=== PATIENT | female | born 1950 | race Hispanic/Latino ===

== ENCOUNTER → 2018-02-18 | Outpatient (CLI) | payer MEDICARE | END | disposition home or self-care (01) | LOC: RAH 12:43 | PROVIDERS: ATTEND Internal Medicine | DX: Z12.31 Encounter for screening mammogram for malignant neoplasm of breast (principal) | CPT/HCPCS: 77067 ==

== ENCOUNTER 2018-07-31 18:50 | Inpatient (IN) | payer MEDICARE ==
[~2018-07-31] VITALS: Ht 157.5 cm; Wt 52.6 kg
[2018-07-31] MEDS ORDERED: ONDANSETRON HCL 4 MG/2 ML VIAL IV PRN (21:00)
[2018-07-31] MEDS ORDERED: ACETAMINOPHEN 325 MG TAB PO PRN ×2 (21:00)
[2018-07-31] MEDS: ENOXAPARIN SODIUM 30 MG/0.3 ML SQ SCH (21:00)
[2018-07-31] MEDS: FAMOTIDINE/PF 20 MG/2 ML VIAL IV SCH (21:00)
[2018-07-31 22:57] LABS: BASOPHILS % (AUTO) 0.4 % (0.0-5.0); EOSINOPHILS % (AUTO) 0.7 % (0.0-8.0); HEMATOCRIT 35.6 % (36-48); LYMPHOCYTES % (AUTO) 31.7 % (21.0-51.0); MEAN CORPUSCULAR HGB CONC 33.6 g/dL (32.0-36.0); MEAN CORPUSCULAR VOLUME 83.4 fL (79-99); MONOCYTES % (AUTO) 6.9 % (3.0-13.0); NEUTROPHILS % (AUTO) 60.3 % (40.0-77.0); PLATELET COUNT (AUTO) 221 K/uL (130-400); RED BLOOD CELL COUNT(AUTO) 4.28 MIL/uL (4.00-5.50); RED CELL DISTRIBUTION WIDTH 13.5 % (11.0-15.5)
[2018-07-31 23:00] VITALS: BP 150/76
[2018-07-31 23:15] LABS: INR 1.02 (0.85-1.15); PARTIAL THROMBOPLASTIN TIME 27.8 SEC (26.3-35.5); PROTHROMBIN TIME 10.7 SEC (9.6-11.6)
[2018-07-31 23:17] LABS: BILIRUBIN,TOTAL 0.3 mg/dL (0.2-1.0); CREATININE 0.9 mg/dL (0.5-1.5); TOTAL PROTEIN, SERUM 7.5 g/dL (6.0-8.3)
[2018-08-01 08:32] VITALS: BP 132/71
[2018-08-01] MEDS: FAMOTIDINE/PF 20 MG/2 ML VIAL IV SCH ×2 (09:37→19:54)
[2018-08-01] MEDS: ENOXAPARIN SODIUM 30 MG/0.3 ML SQ SCH ×2 (09:38→19:55)
[2018-08-01] MEDS ORDERED: DOCU-116 PO (09:42)
[2018-08-01] MEDS ORDERED: BROM2.5T3 PO (09:42)
[2018-08-01] MEDS ORDERED: LEVO75TA4 PO (09:42)
[2018-08-01 09:56] LABS: APPEARANCE,URINE Clear (CLEAR); BILIRUBIN,URINE Negative (NEGATIVE); COLOR,URINE Yellow (YELLOW); GLUCOSE, URINE (UA) Negative (NEGATIVE); KETONES,URINE Negative (NEGATIVE); LEUKOCYTE ESTERASE ,URINE Large (NEGATIVE); NITRATE,URINE Negative (NEGATIVE); OCCULT BLOOD,URINE Nonhemolyzed Trace (NEGATIVE); PROTEIN,URINE Negative (NEGATIVE)
[2018-08-01 10:02] LABS: BACTERIA,URINE Many /HPF (None Seen); RBC,URINE 0-1 /HPF (0-1); SQUAMOUS EPITHELIAL CELL,UR Few /HPF (0-2); WBC,URINE TNTC /HPF (0-1)
[2018-08-01 11:32] VITALS: BP 117/67
--- NOTE | 2018-08-01 14:03 | NUR ---
DR. NAVARRO IN AND EXPLAINED FINDINGS, COLLAR VS SURGERY, RISK ASSOCIATED WITH COMPLICATIONS AND RISKS AND BENEFITS. PT AND FAMILY ASKED QUESTIONS AND DR. NAVARRO ANSWERED THEM. PT VERBALIZED UNDERSTANDING. PT TO HAVE COLLAR IN PLACE AT ALL TIMES.
--- NOTE | 2018-08-01 17:00 | NUR ---
CM IA AND ORDER FOR REFERRAL MET W PT, PRUDENCIO CULLEN, W FRIEND AT SIDE;DAUGHTER LIVES WITH HER, NO DME, HAS BEEN FALLINF FREQUENTLY, CURRENTLY WITH NECK BRACE, ORDER FOR SNF REFERRAL, PT STATES WILL THINK ABOUT IT. CURRENTLY DC PLAN IS HOME Addendum: 08/02/18 at 2126 by VIVIENNE SCHRADER RN CM Amended: Links added.
[2018-08-01 17:23] VITALS: BP 106/72
[2018-08-01 20:48] VITALS: BP 114/68
[2018-08-02] VITALS: BP 115/73
[2018-08-02 04:00] VITALS: BP 128/69
[2018-08-02 04:46] LABS: BASOPHILS % (AUTO) 0.7 % (0.0-5.0); EOSINOPHILS % (AUTO) 0.7 % (0.0-8.0); HEMATOCRIT 36.2 % (36-48); LYMPHOCYTES % (AUTO) 36.8 % (21.0-51.0); MEAN CORPUSCULAR HEMOGLOBIN 27.9 pg (27.0-33.0); MEAN CORPUSCULAR HGB CONC 33.5 g/dL (32.0-36.0); MEAN CORPUSCULAR VOLUME 83.2 fL (79-99); MONOCYTES % (AUTO) 7.9 % (3.0-13.0); NEUTROPHILS % (AUTO) 53.9 % (40.0-77.0); PLATELET COUNT (AUTO) 197 K/uL (130-400); RED BLOOD CELL COUNT(AUTO) 4.34 MIL/uL (4.00-5.50); RED CELL DISTRIBUTION WIDTH 13.6 % (11.0-15.5); WHITE BLOOD COUNT (AUTO) 6.1 K/uL (4.8-10.8)
[2018-08-02 04:52] LABS: CREATININE 0.9 mg/dL (0.5-1.5); POTASSIUM 4.4 mmol/L (3.5-5.1)
[2018-08-02 08:00] VITALS: BP 123/70
[2018-08-02] MEDS: FAMOTIDINE/PF 20 MG/2 ML VIAL IV SCH (08:49)
[2018-08-02] MEDS: ENOXAPARIN SODIUM 30 MG/0.3 ML SQ SCH (08:50)
--- NOTE | 2018-08-02 09:00 | NUR ---
DECLINED SNF, PAS PER DAUGHTER JUN TO FOLLOW UP WITH JULIA MOULTON
[2018-08-02 11:46] VITALS: BP 112/63
[2018-08-02 16:31] VITALS: BP 117/72
[2018-08-02 19:52] VITALS: BP 123/73
--- NOTE | 2018-08-02 20:00 | NUR ---
PT D/C WITH TEACH BACK SATISFACTORILY MALUTHER PRESENT IV REMOVED, CATHETER INTACT PT EDUCATED WITH TEACH BACK TO KEEP HARD CERVICAL COLLAR ON AT ALL TIMES, AND FOLLOW UP WITH PCP AND DR. NAVARRO NO NEW MEDICATIOS RX GIVEN PT DENIES SOB OR CHEST PAIN
== END 2018-08-02 20:26 | disposition home health service (06) | DRG 552 ==
LOC: EDH 18:50 → EDHIP 20:45 → 4AH 22:56
PROVIDERS: ADMIT Internal Medicine; ATTEND Internal Medicine
DX: S16.1XXA Strain of muscle, fascia and tendon at neck level, initial encounter (principal); S09.90XA Unspecified injury of head, initial encounter; R29.6 Repeated falls; G20 Parkinson's disease; E03.9 Hypothyroidism, unspecified; M06.9 Rheumatoid arthritis, unspecified; W19.XXXA Unspecified fall, initial encounter; Z74.01 Bed confinement status; Z88.5 Allergy status to narcotic agent; Z90.711 Acquired absence of uterus with remaining cervical stump; Z91.81 History of falling; Z99.3 Dependence on wheelchair; Y93.89 Activity, other specified; Y92.89 Other specified places as the place of occurrence of the external cause; Y99.8 Other external cause status
CPT/HCPCS: 36415; 70450; 71045; 72052; 72125; 72141; 80048; 80053; 81001; 84484; 85025; 85610; 85730; 93005; 97039; G0378; J1650; J3490

== ENCOUNTER 2018-11-05 13:15 | Emergency (ER) | payer MEDICARE ==
[~2018-11-05 13:15] MED LIST: BROM2.5T3 PO; DOCU-116 PO; LEVO75TA4 PO
[2018-11-05 14:16] LABS: BASOPHILS % (AUTO) 0.4 % (0.0-5.0); EOSINOPHILS % (AUTO) 0.5 % (0.0-8.0); HEMATOCRIT 35.7 % (36-48); LYMPHOCYTES % (AUTO) 23.6 % (21.0-51.0); MEAN CORPUSCULAR HEMOGLOBIN 27.7 pg (27.0-33.0); MEAN CORPUSCULAR HGB CONC 33.2 g/dL (32.0-36.0); MEAN CORPUSCULAR VOLUME 83.2 fL (79-99); MONOCYTES % (AUTO) 8.1 % (3.0-13.0); NEUTROPHILS % (AUTO) 67.4 % (40.0-77.0); PLATELET COUNT (AUTO) 213 K/uL (130-400); RED BLOOD CELL COUNT(AUTO) 4.28 MIL/uL (4.00-5.50); RED CELL DISTRIBUTION WIDTH 13.3 % (11.0-15.5); WHITE BLOOD COUNT (AUTO) 5.6 K/uL (4.8-10.8)
[2018-11-05 14:17] LABS: CREATININE 0.7 mg/dL (0.5-1.5); POTASSIUM 3.9 mmol/L (3.5-5.1)
[2018-11-05 14:22] LABS: ALBUMIN 3.7 g/dL (3.5-5.0); BILIRUBIN,TOTAL 0.3 mg/dL (0.2-1.0); TOTAL PROTEIN, SERUM 6.9 g/dL (6.0-8.3)
[2018-11-05 14:27] LABS: INR 0.97 (0.85-1.15); PARTIAL THROMBOPLASTIN TIME 25.9 SEC (26.3-35.5); PROTHROMBIN TIME 10.2 SEC (9.6-11.6)
[2018-11-05] MEDS ORDERED: OCTYL 2-CYANOACRYLATE 1 EACH TP ONE (15:41)
== END 2018-11-05 16:20 | disposition home or self-care (01) ==
LOC: EDH 13:15
DX: S01.81XA Laceration without foreign body of other part of head, initial encounter (principal); E07.9 Disorder of thyroid, unspecified; Z88.5 Allergy status to narcotic agent; Z88.6 Allergy status to analgesic agent; W18.39XA Other fall on same level, initial encounter; Y93.89 Activity, other specified; Y92.89 Other specified places as the place of occurrence of the external cause; Y99.8 Other external cause status
CPT/HCPCS: 12052; 36415; 70450; 72125; 80053; 85025; 85610; 85730

== ENCOUNTER 2018-11-06 06:43 | Emergency (ER) | payer MEDICARE ==
[2018-11-06] MEDS ORDERED: ONDANSETRON HCL 4 MG/2 ML VIAL ONE (07:30)
[2018-11-06] MEDS ORDERED: MEPERIDINE-PF 25 MG/ML SYG ONE (07:30)
[2018-11-06] MEDS ORDERED: SODIUM CHLORIDE 0.9% 500ML 500 ML IV ONE (07:31)
[2018-11-06 07:57] LABS: CREATININE 0.7 mg/dL (0.5-1.5); POTASSIUM 3.8 mmol/L (3.5-5.1)
[2018-11-06 08:03] LABS: ALBUMIN 3.8 g/dL (3.5-5.0); BILIRUBIN,TOTAL 0.4 mg/dL (0.2-1.0); TOTAL PROTEIN, SERUM 7.3 g/dL (6.0-8.3)
[2018-11-06 08:08] LABS: BASOPHILS % (AUTO) 0.4 % (0.0-5.0); EOSINOPHILS % (AUTO) 0.1 % (0.0-8.0); HEMATOCRIT 35.6 % (36-48); LYMPHOCYTES % (AUTO) 13.5 % (21.0-51.0); MEAN CORPUSCULAR HEMOGLOBIN 27.1 pg (27.0-33.0); MEAN CORPUSCULAR HGB CONC 32.6 g/dL (32.0-36.0); MEAN CORPUSCULAR VOLUME 83.1 fL (79-99); MONOCYTES % (AUTO) 5.7 % (3.0-13.0); NEUTROPHILS % (AUTO) 80.3 % (40.0-77.0); PLATELET COUNT (AUTO) 237 K/uL (130-400); RED BLOOD CELL COUNT(AUTO) 4.29 MIL/uL (4.00-5.50); RED CELL DISTRIBUTION WIDTH 13.2 % (11.0-15.5); WHITE BLOOD COUNT (AUTO) 8.9 K/uL (4.8-10.8)
[2018-11-06] MEDS ORDERED: KETAMINE HCL 100 MG/ML 5ML VIAL IJ ONE (08:51)
[2018-11-06] MEDS ORDERED: TRAMADOL HCL 50 MG TABLET ONE (10:14)
== END 2018-11-06 11:17 | disposition home or self-care (01) ==
LOC: EDH 06:43
DX: S52.591A Other fractures of lower end of right radius, initial encounter for closed fracture (principal); S50.01XA Contusion of right elbow, initial encounter; G23.1 Progressive supranuclear ophthalmoplegia [Steele-Richardson-Olszewski]; E07.9 Disorder of thyroid, unspecified; Z88.6 Allergy status to analgesic agent; W06.XXXA Fall from bed, initial encounter; Y93.89 Activity, other specified; Y92.89 Other specified places as the place of occurrence of the external cause; Y99.8 Other external cause status
CPT/HCPCS: 25605; 36415; 71045; 72170; 73060; 73090; 73100; 73130; 80053; 82550; 85025; 96374; 96375; 99152; 99153; 99285; J2175; J2405; J3490; J7040; 99151

== ENCOUNTER 2019-01-26 04:15 | Emergency (ER) | payer MEDICARE, OTHER ==
[2019-01-26] MEDS ORDERED: OCTYL 2-CYANOACRYLATE 1 EACH TP ONE (06:01)
== END 2019-01-26 07:15 | disposition home or self-care (01) ==
LOC: EDH 04:15
DX: S01.01XA Laceration without foreign body of scalp, initial encounter (principal); E07.9 Disorder of thyroid, unspecified; Z90.710 Acquired absence of both cervix and uterus; Z98.51 Tubal ligation status; Z88.5 Allergy status to narcotic agent; Z88.6 Allergy status to analgesic agent; W06.XXXA Fall from bed, initial encounter; Y93.89 Activity, other specified; Y92.89 Other specified places as the place of occurrence of the external cause; Y99.8 Other external cause status
CPT/HCPCS: 12001; 70450; 72125

== ENCOUNTER 2019-09-07 08:26 | Inpatient (IN) | payer OTHER ==
[2019-09-07] VITALS (11 sets, daily range): BP systolic 114–140; BP diastolic 51–84
[~2019-09-07] VITALS: Ht 157.5 cm; Wt 56.7 kg
[~2019-09-07 08:26] MED LIST changes: -BROM2.5T3 PO; +BROM2.5T4 PO
[2019-09-07] MEDS ORDERED: OCTYL 2-CYANOACRYLATE 1 EACH TP ONE (08:36)
[2019-09-07] MEDS ORDERED: ACETAMINOPHEN 325 MG TAB ONE (08:56)
[2019-09-07] MEDS ORDERED: TETANUS/DIPHTHERIA TOXOID [ADULT] 0.5 ML VIAL IM ONE (08:57)
[2019-09-07] MEDS ORDERED: NICARDIPINE HCL 25 MG in SODIUM CHLORIDE 0.9% 240 ML IV SCH (11:00)
[2019-09-07 11:05] LABS: BASOPHILS % (AUTO) 0.3 % (0.0-5.0); EOSINOPHILS % (AUTO) 0.3 % (0.0-8.0); HEMATOCRIT 37.7 % (36-48); LYMPHOCYTES % (AUTO) 17.2 % (21.0-51.0); MEAN CORPUSCULAR HEMOGLOBIN 26.6 pg (27.0-33.0); MEAN CORPUSCULAR HGB CONC 32.1 g/dL (32.0-36.0); MEAN CORPUSCULAR VOLUME 82.9 fL (79-99); MONOCYTES % (AUTO) 5.8 % (3.0-13.0); PLATELET COUNT (AUTO) 194 K/uL (130-400); RED BLOOD CELL COUNT(AUTO) 4.55 MIL/uL (4.00-5.50); RED CELL DISTRIBUTION WIDTH 13.1 % (11.0-15.5); WHITE BLOOD COUNT (AUTO) 7.9 K/uL (4.8-10.8)
[2019-09-07 11:27] LABS: CREATININE 0.8 mg/dL (0.5-1.5); POTASSIUM 3.7 mmol/L (3.5-5.1)
[2019-09-07] MEDS ORDERED: ONDANSETRON HCL 4 MG/2 ML VIAL IV PRN (11:30)
[2019-09-07] MEDS ORDERED: LACTULOSE 20 GM/30 ML UDCUP PO PRN (11:30)
[2019-09-07] MEDS ORDERED: NITROGLYCERIN 0.4 MG SL TAB SL PRN (11:30)
[2019-09-07 11:32] LABS: ALBUMIN 4.4 g/dL (3.5-5.0); BILIRUBIN,TOTAL 0.4 mg/dL (0.2-1.0)
[2019-09-07 11:45] LABS: INR 0.94 (0.85-1.15); PARTIAL THROMBOPLASTIN TIME 23.3 SEC (26.3-35.5); PROTHROMBIN TIME 10.2 SEC (9.6-11.6)
[2019-09-07 13:02] LABS: BILIRUBIN,TOTAL 0.4 mg/dL (0.2-1.0); CREATININE 0.8 mg/dL (0.5-1.5); POTASSIUM 3.8 mmol/L (3.5-5.1); TOTAL PROTEIN, SERUM 7.3 g/dL (6.0-8.3)
[2019-09-07] MEDS: SODIUM CHLORIDE 0.9% 1000ML 1,000 ML IV SCH (14:37)
[2019-09-07] MEDS ORDERED: SERT25TA5 PO (15:42)
[2019-09-07] MEDS ORDERED: MULT-1296 PO (15:42)
[2019-09-07] MEDS ORDERED: LORA10TA7 PO (15:42)
[2019-09-07] MEDS: FAMOTIDINE/PF 20 MG/2 ML VIAL IV SCH (20:46)
[2019-09-08] VITALS (22 sets, daily range): BP systolic 97–144; BP diastolic 51–85
[2019-09-08 03:57] LABS: BASOPHILS % (AUTO) 0.5 % (0.0-5.0); EOSINOPHILS % (AUTO) 0.7 % (0.0-8.0); HEMATOCRIT 34.1 % (36-48); LYMPHOCYTES % (AUTO) 25.5 % (21.0-51.0); MEAN CORPUSCULAR HEMOGLOBIN 26.8 pg (27.0-33.0); MEAN CORPUSCULAR HGB CONC 32.3 g/dL (32.0-36.0); MONOCYTES % (AUTO) 7.8 % (3.0-13.0); NEUTROPHILS % (AUTO) 65.3 % (40.0-77.0); PLATELET COUNT (AUTO) 206 K/uL (130-400); RED BLOOD CELL COUNT(AUTO) 4.11 MIL/uL (4.00-5.50); RED CELL DISTRIBUTION WIDTH 12.9 % (11.0-15.5); WHITE BLOOD COUNT (AUTO) 8.1 K/uL (4.8-10.8)
[2019-09-08 04:35] LABS: ALBUMIN 3.8 g/dL (3.5-5.0); BILIRUBIN,TOTAL 0.6 mg/dL (0.2-1.0); CREATININE 0.8 mg/dL (0.5-1.5); POTASSIUM 3.6 mmol/L (3.5-5.1); TOTAL PROTEIN, SERUM 7.1 g/dL (6.0-8.3)
--- NOTE | 2019-09-08 07:00 | NUR ---
PER DR BRIGGS NO SURGICAL INTERVENTION NEEDED
--- NOTE | 2019-09-08 10:00 | NUR ---
MD ROUNDS DR ELLIS EXAMINED PT. VS STABLE.
--- NOTE | 2019-09-08 10:50 | NUR ---
MD ROUNDS, DR MINA, EXAMINED PT, NEW CT SCAN. NEURO INTACT. PT IS ALERT AWAKE, ORIENTED X 4, AWAITING SPEECH EVAL
--- NOTE | 2019-09-08 11:04 | NUR ---
PARVIN PLAN VISITED WITH PATIENT. PATIENT LIVES WITH DAUGHTER. DEPENDENT ABLE TO PERFORM SOME ADL'S. PATIENT HAS PROVIDER 35 HOURS A WEEK. USES A WHEEL CHAIR MAINLY DUE TO FREQUENT FALLS. SHE TENDS TO FALL BACK WARDS. DME AVAILABLE WALKER, HOSPITAL BED, BEDSIDE COMMODE, SHOWER CHAIR. PLAN IS TO RETURN HOME. BED ALARM: DAUGHTER ASKED IF INSURANCE WOULD PAY FOR BED ALARM. CALLED [facility]. THEY DO NOT COVER. HOME HEALTH IF POSSIBLE INSTEAD OF GOING TO FACILITY. EXPLAINED THAT MIGHT HAVE TO GO TO DR. DUMONT TO SET UP. SAID OKAY HE WORKS WITH THEM ALL THE TIME. Addendum: 09/08/19 at 1110 by TARYN DAVIS RN CM Amended: Links added.
[2019-09-08] MEDS: FAMOTIDINE/PF 20 MG/2 ML VIAL IV SCH ×2 (11:32→20:59)
[2019-09-08] MEDS: SODIUM CHLORIDE 0.9% 1000ML 1,000 ML IV SCH (11:35)
--- NOTE | 2019-09-08 11:50 | NUR ---
UPDATED DAUGHTER ON PLAN OF CARE. OBTAINED HOME INFO ON DYSPHAGIA STATUS FROM DAUGHTER
--- NOTE | 2019-09-08 12:00 | NUR ---
DYSPHAGIA EVAL COMPLETED. +S/S OF ASPIRATION. RECOMMEND SHORT TERM ALTERNATE MEANS OF NUTRITION/HYDRATION. RECOMMENDATIONS: DYSPHAGIA THERAPY 3-5XWEEK TO INCREASE ORAL MOTOR STRENGTH AND PHARYNGEAL SWALLOW: LTG#1: Pt WILL TOLERATE LEAST RESTRICTIVE DIET TO MEET NUTRITION/HYDRATION WITH NO S/S OF ASPIRATION. LTG#2: SKILLED EDUCATION Pt/FAMILY/STAFF STG#1: Pt WILL PARTICIPATE IN LARYNGEAL ELEVATION/EXCURSION EXERCISES WITH 80% ACCURACY. STG#2: Pt WILL PARTICIPATE IN TONGUE BASE RETRACTION EXERCISES WITH 80% ACCURACY. STG#3: Pt WILL PARTICIPATE IN ORAL MOTOR EXERCISES WITH 80% ACCURACY. STG#4: Pt WILL TOLERATE THERAPEUTIC TRIALS OF PUREED WITH NO OVERT S/S OF ASPIRATION. STG#5: Pt WILL BE ABLE TO PARTICIPATE IN MBSS AFTER 2-4 WEEKS OF THERAPEUTIC INTERVENTION. STG#6: SKILLED EDUCATION Pt/FAMILY/STAFF. SMOKING PIPE REPAIRER COORDINATED CARE AND RECOMMENDATIONS WITH NURSE. Addendum: 09/08/[address]NIE LEYVA Amended: Links added.
--- NOTE | 2019-09-08 14:58 | NUR ---
UPDATED DAUGHTER ON PLAN OF CARE. WILL INSERT NG TUBE AND START FEEDING OK BY DR SOLOMON
--- NOTE | 2019-09-08 16:22 | NUR ---
RD NOTIFICATION - BOLUS TUBE FEEDING Recommend 4 cans/day of Jevity 1.5 (6AM-1 can, 10AM-1can, 2PM-1can, 6PM-1can) Provides: 1420kcal, 60gm Protein, 720mL Free H2O) Recommended flushes: 75mls before and after each feeding. *Rec form placed with Pt chart, RN notified. RD to continue to monitor. Please notify as additional nutrition concerns arise. Thank you. Addendum: 09/08/19 at [address] Amended: Links added.
--- NOTE | 2019-09-08 18:00 | NUR ---
PATIENT CONFUSED, TRYING TO GET OUT OF BED. DR. DONALD MADE AWARE THAT PATIENT IS CONFUSED, TRYING TO GET OUT OF BED. HE STATED SHE MIGHT BE RETAINING URINE AND TO DO A BLADDER SCAN. HE WAS MADE AWARE THAT PATIENT VOIDED ABOUT 150 CC AN HR AGO. HE STATED NO MEDS TO BE GIVEN AT THIS TIME, ORDER FOR SITTER GIVEN. LORNE GONZALEZ, VOCATIONAL EDUCATION TEACHER NOTIFIED. SHE STATED THERE IS NO SITTER FOR THIS EVENING. PATIENT WILL REMAIN IN ICU SINCE NO SITTER IS AVAILABLE.
--- NOTE | 2019-09-08 18:30 | NUR ---
DR. RHONDA ELLIS AT BEDSIDE. HE ORDERED A REPEAT CT SCAN FOR THE MORNING AND A STAT CT SCAN DURING THE NIGHT IF ANY NEURO CHANGES OCCUR.
[2019-09-08 19:29] LABS: APPEARANCE,URINE CLOUDY (CLEAR); BILIRUBIN,URINE NEGATIVE (NEGATIVE); COLOR,URINE YELLOW (YELLOW); GLUCOSE, URINE (UA) NEGATIVE (NEGATIVE); KETONES,URINE 15 mg/dL (NEGATIVE); LEUKOCYTE ESTERASE ,URINE TRACE (NEGATIVE); NITRATE,URINE POSITIVE (NEGATIVE); OCCULT BLOOD,URINE TRACE-INTACT (NEGATIVE); PH,URINE 5.5 (5.0-8.0); PROTEIN,URINE NEGATIVE (NEGATIVE); UROBILINOGEN,URINE 0.2 mg/dL (0.2-1.0)
[2019-09-08 19:36] LABS: BACTERIA,URINE Moderate /HPF (None Seen); WBC,URINE 26-50 /HPF (0-1)
[2019-09-08 19:37] LABS: SQUAMOUS EPITHELIAL CELL,UR Few /HPF (0-2)
[2019-09-08 19:38] LABS: AMPHET/METH SCREEN,URINE NEGATIVE (NEGATIVE); BARBITURATE SCREEN, URINE NEGATIVE (NEGATIVE); BENZODIAZEPINES SCREEN,URINE NEGATIVE (NEGATIVE); CANNABINOID SCREEN,URINE NEGATIVE (NEGATIVE); COCAINE SCREEN,URINE NEGATIVE (NEGATIVE); OPIATE SCREEN,URINE NEGATIVE (NEGATIVE); PHENCYCLIDINE SCREEN,URINE NEGATIVE (NEGATIVE)
--- NOTE | 2019-09-08 23:26 | NUR ---
1930 Bladder scan done. 190 cc. 2200 Patient saturated adult diaper Brii care given.
--- NOTE | 2019-09-09 00:35 | NUR ---
Patient transferred to room 422 after report given to Hal GONZALEZ. States he will call patient's daughter from upstairs and let her know of new room number. Patient status unchanged.
[2019-09-09] MEDS: SODIUM CHLORIDE 0.9% 1000ML 1,000 ML IV SCH ×2 (02:33→05:48)
[2019-09-09 03:39] VITALS: BP 160/83
[2019-09-09 04:10] LABS: BASOPHILS % (AUTO) 0.4 % (0.0-5.0); EOSINOPHILS % (AUTO) 0.7 % (0.0-8.0); HEMATOCRIT 32.5 % (36-48); LYMPHOCYTES % (AUTO) 28.5 % (21.0-51.0); MEAN CORPUSCULAR HEMOGLOBIN 26.6 pg (27.0-33.0); MEAN CORPUSCULAR HGB CONC 32.3 g/dL (32.0-36.0); MEAN CORPUSCULAR VOLUME 82.5 fL (79-99); NEUTROPHILS % (AUTO) 60.1 % (40.0-77.0); PLATELET COUNT (AUTO) 186 K/uL (130-400); RED BLOOD CELL COUNT(AUTO) 3.94 MIL/uL (4.00-5.50); WHITE BLOOD COUNT (AUTO) 6.8 K/uL (4.8-10.8)
[2019-09-09 04:48] LABS: ALBUMIN 3.5 g/dL (3.5-5.0); BILIRUBIN,TOTAL 0.5 mg/dL (0.2-1.0); CREATININE 0.7 mg/dL (0.5-1.5); POTASSIUM 3.7 mmol/L (3.5-5.1); TOTAL PROTEIN, SERUM 6.7 g/dL (6.0-8.3)
[2019-09-09] MEDS: LEVOTHYROXINE 75 MCG TABLET PO SCH (05:45)
[2019-09-09 07:00] VITALS: BP 114/66
[2019-09-09] MEDS: FAMOTIDINE/PF 20 MG/2 ML VIAL IV SCH ×2 (08:38→21:00)
[2019-09-09] MEDS: SERTRALINE HCL 50 MG TABLET PO SCH (08:38)
[2019-09-09 11:00] VITALS: BP_SYST 118; BP_SYST 156; BP_DIAS 75; BP_DIAS 77
--- NOTE | 2019-09-09 11:45 | NUR ---
SWALLOWING TREATMENT COMPLETED. MBSS RECOMMENDED. S: Pt COOPERATIVE WITH ALL THERAPEUTIC SWALLOWING GOALS. Pt CURRENTLY ON NG TUBE FEEDING. Pt STABLE AND IN GOOD RESPIRATORY STATUS TO PROCEED WITH THERAPY. Pt'S VOCAL QUALITY REMAINS WET AND WITH COUGH & THROAT CLEAR EPISODES NOT RELATED TO P.O. INTAKE. 0: Pt CURRENTLY TARGETING SWALLOWING GOALS, RESULTS ARE FOLLOWS: 1. Pt PARTICIPATED IN LARYNGEAL ELEVATION/EXCURSION EXERCISES WITH 40% ACCURACY. 2. Pt PARTICIPATED IN TONGUE BASE RETRACTION EXERCISES WITH 100% ACCURACY. 3. Pt PARTICIPATED IN ORAL MOTOR EXERCISES WITH 100% ACCURACY. 4. Pt PARTICIPATED IN THERAPEUTIC TRIALS OF TSPS OF THIN LIQUID WITH NO S/S OF ASPIRATION. 5. SKILLED EDUCATION Pt/FAMILY/STAFF: COMPLETED A: LOST CHARGE CARD CLERK EDUCATED Pt ON RISKS AND CONSEQUENCES OF ASPIRATION. Pt VERBALIZED UNDERSTANDING AND COOPERATION WITH SWALLOWING GOALS. P: RECOMMEND NPO PENDING MBSS. LOST CHARGE CARD CLERK COORDINATED WITH NURSE MADRID. LOST CHARGE CARD CLERK WILL CONTINUE TO FOLLOW Pt DURING THE LENGTH OF STAY IN THE HOSPITAL TO CONTINUE ADDRESSING SWALLOWING GOALS. Addendum: 09/09/[address] ERNIE LEYVA Amended: Links added.
[2019-09-09 11:58] LABS: APPEARANCE,URINE Cloudy (CLEAR); BILIRUBIN,URINE Negative (NEGATIVE); COLOR,URINE Yellow (YELLOW); GLUCOSE, URINE (UA) Negative (NEGATIVE); KETONES,URINE Negative (NEGATIVE); LEUKOCYTE ESTERASE ,URINE Large (NEGATIVE); NITRATE,URINE Negative (NEGATIVE); OCCULT BLOOD,URINE Negative (NEGATIVE); PROTEIN,URINE Negative (NEGATIVE)
[2019-09-09 12:11] LABS: BACTERIA,URINE Many /HPF (None Seen); RBC,URINE 0-1 /HPF (0-1); WBC,URINE 26-50 /HPF (0-1)
[2019-09-09] MEDS ORDERED: COMPOUND IV MISC 1 EACH IVSOLN MISC PRN (12:15)
[2019-09-09] MEDS: LEVETIRACETAM 250 MG in SODIUM CHLORIDE 0.9% 100 ML IV SCH (13:58)
[2019-09-09] MEDS: BROMOCRIPTINE MESYLATE 2.5 MG TABLET PO SCH (13:58)
[2019-09-09 15:00] VITALS: BP 122/70
[2019-09-09 19:11] VITALS: BP 105/67
[2019-09-09] MEDS: LEVETIRACETAM 500 MG in SODIUM CHLORIDE 0.9% 100 ML IV SCH (21:41)
[2019-09-09 23:45] VITALS: BP 101/66
[2019-09-10] MEDS ORDERED: ACETAMINOPHEN ELIXIR 650 MG/20.3 ML UDCUP NG PRN (03:15)
[2019-09-10] MEDS: SODIUM CHLORIDE 0.9% 1000ML 1,000 ML IV SCH (03:28)
[2019-09-10 05:14] LABS: BASOPHILS % (AUTO) 0.3 % (0.0-5.0); EOSINOPHILS % (AUTO) 0.9 % (0.0-8.0); HEMATOCRIT 30.1 % (36-48); LYMPHOCYTES % (AUTO) 29.8 % (21.0-51.0); MEAN CORPUSCULAR HEMOGLOBIN 26.8 pg (27.0-33.0); MEAN CORPUSCULAR HGB CONC 32.2 g/dL (32.0-36.0); MEAN CORPUSCULAR VOLUME 83.1 fL (79-99); MONOCYTES % (AUTO) 9.5 % (3.0-13.0); NEUTROPHILS % (AUTO) 59.2 % (40.0-77.0); PLATELET COUNT (AUTO) 190 K/uL (130-400); RED BLOOD CELL COUNT(AUTO) 3.62 MIL/uL (4.00-5.50); WHITE BLOOD COUNT (AUTO) 6.6 K/uL (4.8-10.8)
[2019-09-10 05:18] VITALS: BP 101/65
[2019-09-10 05:54] LABS: ALBUMIN 3.3 g/dL (3.5-5.0); BILIRUBIN,TOTAL 0.4 mg/dL (0.2-1.0); CREATININE 0.8 mg/dL (0.5-1.5); POTASSIUM 3.6 mmol/L (3.5-5.1); TOTAL PROTEIN, SERUM 6.3 g/dL (6.0-8.3)
[2019-09-10] MEDS: LEVOTHYROXINE 75 MCG TABLET PO SCH (05:57)
--- NOTE | 2019-09-10 06:00 | NUR ---
ROUNDS PATIENT RESTING IN BED WITH OU CLOSED. EASILY AROUSED. NO COMPLAINTS OF PAIN VOICED AT THIS TIME. VITALS STABLE. AFEBRILE. TOLERATING IVF WELL. CONTINUES WITH BOLUS FEEDINGS VIA NGT. TOLERATING WELL. NO NAUSEA OR VOMITING NOTED. PENDING MBSS TODAY. RESP EVEN AND UNLABORED. NO SOB NOTED. ON ROOM AIR. TOTAL CARE RENDERED Q2H AND PRN. HOB ELEVATED. FALL PRECAUTIONS IN PLACE DUE TO POOR SAFETY AWARENESS. 1:[address] SIDE RAILS UP X4. CALL LIGHT WITHIN REACH. WILL CONTINUE TO BE OBSERVED. Addendum: 09/10/19 at 0741 by MARKUS BOBBY RN RN Amended: Links added.
[2019-09-10 07:00] VITALS: BP 92/53
[2019-09-10] MEDS: LEVETIRACETAM 250 MG in SODIUM CHLORIDE 0.9% 100 ML IV SCH (09:00)
--- NOTE | 2019-09-10 10:10 | NUR ---
MBSS PT TAKEN FOR MBSS BY TECH VIA BED.
--- NOTE | 2019-09-10 10:15 | NUR ---
MBSS COMPLETED. NO ASPIRATION, TRANSIENT PENETRATION WITH THIN LIQUID (INCLUDING MIXED TEXTURES) AND NECTAR THICK LIQUIDS. RECOMMEND MECHANICAL SOFT/CHOPPED (NO MIXED TEXTURES), HONEY THICK LIQUIDS, PILLS CRUSHED WITH APPLESAUCE TOLERATED. COMPENSATORY STRATEGIES: SLOW AND SMALL BITES/SIPS, 1-2 EXTRA DRY SWALLOWS AFTER EACH BITE/SIP TO CLEAR RESIDUE, AND SIT UPRIGHT DURING & 30 MINUTES AFTER MEAL. RECOMMENDATIONS: DYSPHAGIA THERAPY 3-5XWEEK TO INCREASE ORAL MOTOR STRENGTH AND PHARYNGEAL SWALLOW: LTG#1: Pt WILL TOLERATE LEAST RESTRICTIVE DIET TO MEET NUTRITION/HYDRATION WITH NO S/S OF ASPIRATION. LTG#2: SKILLED EDUCATION Pt/FAMILY/STAFF STG#1: Pt WILL PARTICIPATE IN LARYNGEAL ELEVATION/EXCURSION EXERCISES WITH 80% ACCURACY. STG#2: Pt WILL PARTICIPATE IN TONGUE BASE RETRACTION EXERCISES WITH 80% ACCURACY. STG#3: Pt WILL PARTICIPATE IN ORAL MOTOR EXERCISES WITH 80% ACCURACY. STG#4: Pt WILL TOLERATE THERAPEUTIC TRIALS OF NECTAR THICK LIQUIDS WITH NO OVERT S/S OF ASPIRATION. STG#5: Pt WILL BE ABLE TO PARTICIPATE IN MBSS AFTER 2-4 WEEKS OF THERAPEUTIC INTERVENTION. STG#6: SKILLED EDUCATION Pt/FAMILY/STAFF. HOSPICE CONSULTANT REVIEWED RESULTS AND RECOMMENDATIONS WITH Pt, NURSE CHI, AND DAUGHTER (RIYA) OVER THE PHONE. ALL QUESTIONS ANSWERED AT THIS TIME. Addendum: 09/10/[address] ERNIE LEYVA Amended: Links added.
[2019-09-10 11:00] VITALS: BP 104/62
[2019-09-10] MEDS: FAMOTIDINE/PF 20 MG/2 ML VIAL IV SCH ×2 (11:06→21:37)
[2019-09-10] MEDS: BROMOCRIPTINE MESYLATE 2.5 MG TABLET PO SCH (11:07)
[2019-09-10] MEDS: SERTRALINE HCL 50 MG TABLET PO SCH (11:08)
[2019-09-10 16:00] VITALS: BP 90/54
[2019-09-10 19:00] VITALS: BP 117/71
[2019-09-10] MEDS: LEVETIRACETAM 500 MG in SODIUM CHLORIDE 0.9% 100 ML IV SCH (21:37)
[2019-09-11] VITALS: BP 108/68
[2019-09-11 04:00] VITALS: BP 102/56
[2019-09-11] MEDS: LEVOTHYROXINE 75 MCG TABLET PO SCH (04:46)
[2019-09-11] MEDS: SODIUM CHLORIDE 0.9% 1000ML 1,000 ML IV SCH ×2 (04:46→15:21)
[2019-09-11 08:00] VITALS: BP 132/72
--- NOTE | 2019-09-11 08:56 | NUR ---
patients discharge held yesterday for pending Ucul- REVIEWED RESULTS TODAY, WILL DISCUSS WITH /BROOKE POTENTIAL FOR NEED FOR IV ABX, IF NEEDED WILL SPEAK TO DAUGHTER FABIANA ABOUT PLACEMENT Addendum: 09/11/19 at 0858 by VIVIENNE SCHRADER RN CM Amended: Links added.
[2019-09-11] MEDS: LEVETIRACETAM 250 MG in SODIUM CHLORIDE 0.9% 100 ML IV SCH (10:22)
[2019-09-11] MEDS: SERTRALINE HCL 50 MG TABLET PO SCH (10:22)
[2019-09-11] MEDS: FAMOTIDINE/PF 20 MG/2 ML VIAL IV SCH ×2 (10:22→21:55)
[2019-09-11] MEDS: BROMOCRIPTINE MESYLATE 2.5 MG TABLET PO SCH (10:22)
[2019-09-11 11:56] VITALS: BP 116/70
[2019-09-11] MEDS: MEROPENEM 500 MG VIAL IVP SCH ×2 (13:05→21:53)
[2019-09-11 14:07] LABS: INR 0.98 (0.85-1.15); PROTHROMBIN TIME 10.6 SEC (9.6-11.6)
[2019-09-11 16:00] VITALS: BP 124/74
--- NOTE | 2019-09-11 16:41 | NUR ---
RD FOLLOW UP Diet advanced to GI Soft/Brooks, Mechanical Soft, HTL. Recommend offer of snacks between meals, as needed. RD to monitor PO status, nutritional labs, hydration, weight. Addendum: 09/11/19 at [address] Amended: Links added.
--- NOTE | 2019-09-11 18:50 | NUR ---
INSURANCE HAS APPROVIED THE [facility] WILL NOT SHIP MED UNTIL PICC LINE PLACED CM WILL FOLLOW UP IN AM TO FAX PICC LINE INFO. [facility] GIVENS PRIOR TO DCING. INFO ALSO NEED TO BE SENT TO DR. SANCHEZ OFFICE. EMS FOR HOME TRANSPORT- FORMS IN CHART Addendum: 09/11/19 at 1852 by VIVIENNE SCHRADER RN CM Amended: Links added.
[2019-09-11 20:00] VITALS: BP 143/75
[2019-09-11] MEDS: LEVETIRACETAM 500 MG in SODIUM CHLORIDE 0.9% 100 ML IV SCH (21:55)
[2019-09-12] VITALS (7 sets, daily range): BP systolic 112–140; BP diastolic 66–83
[2019-09-12] MEDS: LEVOTHYROXINE 75 MCG TABLET PO SCH (05:21)
[2019-09-12] MEDS: MEROPENEM 500 MG VIAL IVP SCH ×3 (05:21→22:03)
--- NOTE | 2019-09-12 05:48 | NUR ---
PATIENT UPDATE Pt pending discharge to home with home health. 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 Tolerating the [facility] soft diet, meds crushed. Medicated with tylenol gx x elixir for complaints of pain on the rt side of the head which afforded relief. Was started on the Merrem antibiotic last night as per order. To be given a dose of Invans this am before discharge. Slept well last night, random talk in between sleep, afebrile.
--- NOTE | 2019-09-12 08:10 | NUR ---
NOTE AWAKE. ALERT. ORIENTED TO NAME PLACE. NO DISTRESS OR SOB. BBS CLEAR. NO COUGH. HERE S/P FALL AT HOME INTRACRANIAL BLEED NOTED ON CT SCAN ON ARRIVAL WAS SEEN BY DR SOLOMON AND HE DICTATED PATIENT NEEDED FOLLOW CT SCAN. WAS ALSO SEEN BY NEUROLOGIST DUE TO HER EXISTING NEUROLOGIC CONDITIONS. SHE SEEMS CONFUSED AT TIMES AND REPEATS CONVERSATIONS OVER AND OVER AND SHE TALKS A LOT AND JUMPS FROM SUBJECT TO SUBJECT. BRUISING NOTED AROUND THE EYES MORE PROMINENT TO RIGHT EYE. STATES SHE CAN SEE OKAY FROM BOTH EYES. SHE IN IN CONTACT PRECAUTIONS BECAUSE OF POSITIVE URINE CULTURES FOR ESBL E. COLI. PENDING PICC LINE PLACEMENT FOR DC HOME WITH HOME HEALTH FOR IV ABX.
--- NOTE | 2019-09-12 10:10 | NUR ---
HOLD TREATMENT Pt CURRENTLY GETTING A PICC LINE. HOLD TREATMENT AT THIS TIME. CARE PROFESSIONAL WILL CONTINUE TO FOLLOW Pt FOR SKILLED SWALLOWING GOALS DURING THE LENGTH OF STAY IN THE HOSPITAL. CARE PROFESSIONAL COORDINATED WITH NURSE OROZCO. Addendum: 09/12/[address] ERNIE LEYVA Amended: Links added.
[2019-09-12] MEDS: LEVETIRACETAM 250 MG in SODIUM CHLORIDE 0.9% 100 ML IV SCH (11:11)
[2019-09-12] MEDS: BROMOCRIPTINE MESYLATE 2.5 MG TABLET PO SCH (11:11)
[2019-09-12] MEDS: SERTRALINE HCL 50 MG TABLET PO SCH (11:11)
[2019-09-12] MEDS: SODIUM CHLORIDE 0.9% 1000ML 1,000 ML IV SCH (11:21)
--- NOTE | 2019-09-12 11:42 | NUR ---
NOTE PICC LINE SUCCESSFULLY INSERTED PER ZACH GONZALEZ. YULI 2 LUMEN. READY FOR USE. SINTER FEEDER MADE AWARE. PATIENT PENDING HOME HEALTH ARRANGEMENTS WITH [facility] FOR 10 DAYS.
[2019-09-12] MEDS: FAMOTIDINE/PF 20 MG/2 ML VIAL IV SCH ×2 (12:57→22:03)
[2019-09-12] MEDS ORDERED: PHARMACY COMMUNICATION MISC SCH (14:00)
[2019-09-12] MEDS ORDERED: INVANZ 1GM+NS 50ML IVPB 50 ML IV SCH (14:00)
--- NOTE | 2019-09-12 17:08 | NUR ---
cm note spoke to home [facility] and states pt is accepted and spoke to [facility] and states they have delivered meds. dc plan home tonight. updated primary nurse Donnie.
--- NOTE | 2019-09-12 19:30 | NUR ---
PM Assessment Received pt awake, pleasantly conversant with newly inserted PICC line reported with pressure dressing as site was bleeding. Routine assessment done, plan of care discuss, made aware we remain pending d/c order at this time. PT noted with right hand support stated from previous incident of a fracture couple of years back. Pressure dressing to PICC line site noted start coagulating, left the way it is, will change the dressing in AM. Reported PICC line is OK to use, peripheral access discontinued aseptically with catheter tip intact. Pt currently denies discomfort, hopeful to go home.
--- NOTE | 2019-09-12 20:00 | NUR ---
Re: Discharge Received a call from pt's daughter Shakila asking if pt will be d/c at this time. I made her aware as per report that Dr. Fajardo will be coming in to give us d/c orders which at this point I am still pending such order. Per Ms. Shakila that it's late at night prefers for pt to be d/c tomorrow. I made her aware that we will be giving her a call once we have the d/c order.
[2019-09-12] MEDS ORDERED: LEVE500T9 PO (20:54)
--- NOTE | 2019-09-12 22:00 | NUR ---
Re: Discharge RESEARCH PHYSICIST Concepción made aware that d/c order was place around 2100, pt's daughter had called around 2000 & voiced out preference of d/c tomorrow as it's late at night. Received order to hold d/c for tonight, d/c tomorrow. Tom regalado made aware & stated to make sure call family re: d/c by 0700.
[2019-09-12] MEDS: LEVETIRACETAM 500 MG in SODIUM CHLORIDE 0.9% 100 ML IV SCH (22:06)
[2019-09-13 03:59] VITALS: BP 124/70
[2019-09-13] MEDS: LEVOTHYROXINE 75 MCG TABLET PO SCH (05:40)
[2019-09-13] MEDS: MEROPENEM 500 MG VIAL IVP SCH ×2 (05:40→12:30)
[2019-09-13] MEDS: SODIUM CHLORIDE 0.9% 1000ML 1,000 ML IV SCH (07:21)
--- NOTE | 2019-09-13 08:00 | NUR ---
ASSESSMENT ENCOUNTERED PT ASLEEP BUT AROUSEABLE, A&OX3 BUT FORGETFUL, CALM COOPERATIVE AND DOES NOT APPEAR TO BE IN ANY DISTRESS. PT DOES C/O HEADACHE. PT DOES HAVE ORBITAL DISCOLORATION BILATERALLY, PT IS ABLE TO TOLERATE ONE MEDICATION AT A TIME WITH THICKENED LIQUIDS WITH NO THROAT CLEARING OR COUGH. PICC LINE TO LEFT UPPER ARM WITH 2 PORTS PATENT. PT IS PENDING DISCHARGE WITH EMS TRANSPORTATION. CALL LIGHT WITHIN REACH.
[2019-09-13] MEDS: LEVETIRACETAM 250 MG in SODIUM CHLORIDE 0.9% 100 ML IV SCH (09:00)
[2019-09-13] MEDS: BROMOCRIPTINE MESYLATE 2.5 MG TABLET PO SCH (09:00)
[2019-09-13] MEDS: FAMOTIDINE/PF 20 MG/2 ML VIAL IV SCH (09:00)
--- NOTE | 2019-09-13 11:17 | NUR ---
[facility] REPORT GIVEN TO ALEK GONZALEZ, INFORMED THAT INVANZ DOSE DUE AT 1600 AND THAT INVANZ DOSE HAD BEEN DELIVERED TO [facility] ACCORDING TO DAUGHTER RIYA.
[2019-09-13] MEDS ORDERED: PHARMACY COMMUNICATION MISC ONE (15:15)
[2019-09-13] MEDS ORDERED: INVANZ 1GM+NS 50ML IVPB 50 ML IV SCH (15:15)
[2019-09-13 16:00] VITALS: BP 108/66
== END 2019-09-13 17:10 | disposition home health service (06) | DRG 83 ==
LOC: EDH 08:26 → EDHIP 11:21 → DAHIP 13:30 → 4DH 09-09 00:07
PROVIDERS: ADMIT Internal Medicine; ATTEND Internal Medicine
PROC: 3E0234Z Introduction of Serum, Toxoid and Vaccine into Muscle, Percutaneous Approach (ICD-10-PCS; principal; 2019-09-07)
PROC: 0HQ1XZZ Repair Face Skin, External Approach (ICD-10-PCS; 2019-09-07)
PROC: 02HV33Z Insertion of Infusion Device into Superior Vena Cava, Percutaneous Approach (ICD-10-PCS; 2019-09-12)
PROC: B548ZZA Ultrasonography of Superior Vena Cava, Guidance (ICD-10-PCS; 2019-09-12)
DX: S06.389A Contusion, laceration, and hemorrhage of brainstem with loss of consciousness of unspecified duration, initial encounter (principal); G23.1 Progressive supranuclear ophthalmoplegia [Steele-Richardson-Olszewski]; G93.40 Encephalopathy, unspecified; N39.0 Urinary tract infection, site not specified; Z16.24 Resistance to multiple antibiotics; Z16.12 Extended spectrum beta lactamase (ESBL) resistance; E03.9 Hypothyroidism, unspecified; R29.6 Repeated falls; G20 Parkinson's disease; B96.20 Unspecified Escherichia coli [E. coli] as the cause of diseases classified elsewhere; D64.9 Anemia, unspecified; F02.80 Dementia in other diseases classified elsewhere, unspecified severity, without behavioral disturbance, psychotic disturbance, mood disturbance, and anxiety; S01.81XA Laceration without foreign body of other part of head, initial encounter; R53.81 Other malaise; W18.30XA Fall on same level, unspecified, initial encounter; Y93.89 Activity, other specified; Y92.091 Bathroom in other non-institutional residence as the place of occurrence of the external cause; Y99.8 Other external cause status; Z74.01 Bed confinement status; Z91.81 History of falling; Z99.3 Dependence on wheelchair; Z90.710 Acquired absence of both cervix and uterus; Z88.5 Allergy status to narcotic agent; Z23 Encounter for immunization
CPT/HCPCS: 36415; 70450; 70486; 70544; 70551; 71045; 74230; 80053; 80305; 81001; 82550; 82607; 82948; 84443; 84484; 85025; 85610; 85730; 87077; 87088; 87186; 90714; 92526; 92610; 92611; 93005; 97039; A4351; C1894; G0378; J1335; J1953; J2185; J2405; J3490; J7030; J7050

== ENCOUNTER → 2019-11-12 | Outpatient (CLI) | payer OTHER ==
[~2019-11-12] MED LIST changes: -DOCU-116 PO; +LEVE500T9 PO; +LORA10TA7 PO; +MULT-1296 PO; +SERT25TA5 PO
== END | disposition home or self-care (01) ==
LOC: RAH 11:11
PROVIDERS: ATTEND Internal Medicine
DX: Z12.31 Encounter for screening mammogram for malignant neoplasm of breast (principal)
CPT/HCPCS: 77067

== ENCOUNTER 2020-07-06 13:21 | Emergency (ER) | payer OTHER ==
[~2020-07-06 13:21] MED LIST changes: +SERT-438 PO; -SERT25TA5 PO
[2020-07-06 13:54] LABS: BASOPHILS % (AUTO) 0.4 % (0.0-5.0); EOSINOPHILS % (AUTO) 1.2 % (0.0-8.0); HEMATOCRIT 34.1 % (36-48); LYMPHOCYTES % (AUTO) 20.7 % (21.0-51.0); MEAN CORPUSCULAR HEMOGLOBIN 28.1 pg (27.0-33.0); MEAN CORPUSCULAR HGB CONC 32.8 g/dL (32.0-36.0); MEAN CORPUSCULAR VOLUME 85.5 fL (79-99); MONOCYTES % (AUTO) 7.9 % (3.0-13.0); NEUTROPHILS % (AUTO) 69.3 % (40.0-77.0); PLATELET COUNT (AUTO) 221 K/uL (130-400); RED BLOOD CELL COUNT(AUTO) 3.99 MIL/uL (4.00-5.50); RED CELL DISTRIBUTION WIDTH 12.6 % (11.0-15.5); WHITE BLOOD COUNT (AUTO) 8.3 K/uL (4.8-10.8)
[2020-07-06 14:03] LABS: CREATININE 0.8 mg/dL (0.5-1.5); POTASSIUM 3.9 mmol/L (3.5-5.1)
[2020-07-06 14:06] LABS: PROTHROMBIN TIME 10.9 SEC (9.6-11.6)
[2020-07-06 14:07] LABS: PARTIAL THROMBOPLASTIN TIME 24.2 SEC (26.3-35.5)
[2020-07-06 14:10] LABS: ALBUMIN 3.9 g/dL (3.5-5.0); BILIRUBIN,TOTAL 0.2 mg/dL (0.2-1.0); TOTAL PROTEIN, SERUM 7.4 g/dL (6.0-8.3)
[2020-07-06] MEDS ORDERED: ACETAMINOPHEN EXTRA STRENGTH 500 MG TABLET ONE (14:33)
== END 2020-07-06 16:20 | disposition home or self-care (01) ==
LOC: EDH 13:21
DX: S00.03XA Contusion of scalp, initial encounter (principal); E07.9 Disorder of thyroid, unspecified; Z88.6 Allergy status to analgesic agent; V48.4XXA Person boarding or alighting a car injured in noncollision transport accident, initial encounter; Y93.89 Activity, other specified; Y92.89 Other specified places as the place of occurrence of the external cause; Y99.8 Other external cause status
CPT/HCPCS: 36415; 70450; 71045; 72125; 80053; 84484; 85025; 85610; 85730; 93005

== ENCOUNTER → 2021-09-21 | Outpatient (CLI) | payer OTHER | END | disposition home or self-care (01) | LOC: RAH 09:23 | PROVIDERS: ATTEND Internal Medicine | DX: Z12.31 Encounter for screening mammogram for malignant neoplasm of breast (principal) | CPT/HCPCS: 77067 ==